=== PATIENT | female | born 1990 | race Caucasian/White ===

== ENCOUNTER 2023-05-08 17:11 | Emergency (ER) | payer MEDICAID, SELFPAY ==
[2023-05-08 17:21] VITALS: BP 114/69; PULSE 56; RESP 18; TEMP 36.3; O2SAT 100; BMI 26.4
--- NOTE | 2023-05-08 17:47 | ED_ITS ---
HPI - General Adult General Chief complaint: Unspecified Complaint, Adult Stated complaint: Trouble Breathing Itching Burning Chest Pains Time Seen by Provider: 05/08/23 17:16 History of Present Illness HPI narrative: This 32-year-old female comes in reporting symptoms of feeling itchy with chest discomfort and shortness of breath starting last evening. She does not have a cough and has not had any fevers. She states that she feels some chest discomfort at times and it is reproducible with certain movements or taking a deep breath. She states that she feels short of breath but clarifies this to mean that it is little more difficult to breathe through her nose. She does arrive with normal vital signs. She does not have any rash or skin changes. She is otherwise in good health. Related Data Home Medications Medication Instructions Recorded Confirmed buprenorphine 4 mg-naloxone 1 mg 5 mg sublingual BID 05/08/23 05/08/23 sublingual film (Suboxone) quetiapine 100 mg tablet PO 05/08/23 Previous Rx's Medication Instructions Recorded methylprednisolone 4 mg tablets in See Rx Instructions PO .COMPLEX 05/08/23 a dose pack (Medrol (Jeramy)) #21 ea Allergies Allergy/AdvReac Type Severity Reaction Status Date / Time horseradish AdvReac Verified 05/08/23 17:21 Review of Systems Status of ROS: Reports: 10 or more systems reviewed and unremarkable except as noted in History and below Narrative: Constitutional: No fevers, no weight gain or loss. Eyes: No discharge. No vision changes. HENT: She has nasal congestion. no sore throat, no ear pain. Cardiovascular: No palpitations. Respiratory: No shortness of breath, no wheezes, no cough. Gastrointestinal: No abdominal pain, no vomiting, no diarrhea. Genitourinary: No dysuria, no hematuria. Musculoskeletal: Normal range of motion. Skin: No rashes. She feels itchy. Neurological: No dizziness, weakness, sensory change, speech change. Endo/Heme/Allergies: No bruising or bleeding. No polydipsia. Pysch: no suicidality, no anxiety, no insomnia. All other systems reviewed and are negative. Exam Narrative: Exam Narrative: Constitutional: Well-developed, well-nourished, no acute distress. HEENT: Normocephalic, atraumatic. Oropharynx appears normal. Neck: Normal range of motion. Nontender. Supple. Heart: Regular. No murmurs. Normal rate. Intact distal pulses. Lungs: Clear to auscultation. No wheezes, rhonchi, or rales. Some chest discomfort in the lower anterior chest when taking a deep breath and with certain movements. Abdomen: Normal bowel sounds. Nontender. No rebound tenderness. Genitalia: Deferred. Back: No midline tenderness. Normal range of motion. Extremities: Normal range of motion. No injury. Skin: Intact. No rash. Warm. No erythema or pallor. Neurologic: No altered sensation. No weakness. Alert and oriented. Psychiatric: No suicidality. No anxiety or depression. No insomnia. Nursing notes and vitals signs are reviewed. Const: Vital Signs, click to edit/add: Vital Signs - 24 hr 05/08/23 17:21 Temperature 97.3 F L Pulse Rate [Right Pulse Oximeter] 56 L Respiratory Rate 18 Blood Pressure [Le ft Upper Arm] 114/69 Pulse Oximetry 100 Oxygen Delivery Me thod Room Air Course Vital Signs Vital signs: Initial Vital Signs Temperature 97.3 F L 05/08/23 17:21 Temperature Source Temporal Artery Scan 05/08/23 17:21 Pulse Rate 56 L 05/08/23 17:21 Respiratory Rate 18 05/08/23 17:21 Blood Pressure 114/69 05/08/23 17:21 Blood Pressure Mean 84 05/08/23 17:21 Blood Pressure Position Sitting 05/08/23 17:21 Pulse Oximetry 100 05/08/23 17:21 Oxygen Delivery Method Room Air 05/08/23 17:21 Vital Signs Temperature 97.3 F L 05/08/23 17:21 Pulse Rate 56 L 05/08/23 17:21 Respiratory Rate 18 05/08/23 17:21 Blood Pressure 114/69 05/08/23 17:21 Pulse Oximetry 100 05/08/23 17:21 Oxygen Delivery Method Room Air 05/08/23 17:21 Temperature 97.3 F L 05/08/23 17:21 Pulse Rate 56 L 05/08/23 17:21 Respiratory Rate 18 05/08/23 17:21 Blood Pressure 114/69 05/08/23 17:21 Pulse Oximetry 100 05/08/23 17:21 Oxygen Delivery Method Room Air 05/08/23 17:21 Medical Decision Making MDM Narrative Medical decision making narrative: This patient comes in with several symptoms that began last evening. She states that she feels itchy all over and has some congestion in her nasal area. She has also had some chest discomfort on and off. I did discuss lab and imaging options with the patient and she did request an EKG along with a bedside ultrasound. EKG shows normal sinus rhythm. I did do a quick cursory look at lungs and heart and abdomen with bedside ultrasound but did not store any images or charge for this screening look. Her symptoms are likely musculoskeletal with regard to her chest discomfort. She may have some allergic reaction also but is not showing any sign of rash. The patient did receive an oral dose of dexamethasone and a prescription for Medrol Dosepak. ECG Data Attestation: I personally reviewed and interpreted this ECG as follows: Interpretation: Normal sinus rhythm. Rate is 57 beats per minute. There are no ST or T-wave abnormalities. Discharge Plan Discharge Clinical Impression: Chest wall pain, Pruritus Patient Disposition: Home, Self-Care Condition: Stable Additional Instructions: Take medication as prescribed. Follow up with MD or return if worsening. Prescriptions: New methylprednisolone [Medrol (Jeramy)] 4 mg tablets,dose pack See Rx Instructions .ROUTE .COMPLEX Qty: 21 0RF Rx Instructions: orally per package directions No Action quetiapine 100 mg tablet PO buprenorphine-naloxone [Suboxone] 4-1 mg film 5 mg sublingual BID Follow Up/Referrals: Provider,Not a Local [Primary Care Provider] - Stand Alone Forms: [employer] [facility] Info Instructions
[2023-05-08] MEDS: dexAMETHasone 10 MG/ML inj PO (18:33)
--- NOTE | 2023-05-09 14:52 | ED.NURSE ---
had called and wanted the rx for the steroid. [facility] did not receive the rx. medrol dose ezio called in to [facility] as ordered,
== END 2023-05-08 18:37 | disposition home or self-care (01) ==
PROVIDERS: Emergency Provider Emergency Medicine Emergency Medical Services
DX: R07.89 Other chest pain (principal); L29.9 Pruritus, unspecified
CPT/HCPCS: 93005; 99284; J1100

== ENCOUNTER 2023-06-15 15:23 | Outpatient (CLI) | payer SELFPAY | END 2023-06-15 15:24 | disposition home or self-care (01) | PROVIDERS: Visit Provider Student in an Organized Health Care Education/Training Program | DX: S69.92XA Unspecified injury of left wrist, hand and finger(s), initial encounter (principal); V49.40XA Driver injured in collision with unspecified motor vehicles in traffic accident, initial encounter; Y92.410 Unspecified street and highway as the place of occurrence of the external cause | CPT/HCPCS: A0425; A0429 ==

== ENCOUNTER 2023-06-15 15:53 | Emergency (ER) | payer SELFPAY ==
[2023-06-15] VITALS (12 sets, daily range): BP systolic 104–115; BP diastolic 58–76; PULSE 84–104; RESP 14–16; TEMP 36.1; O2SAT 96–98; BMI 27.4
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
[2023-06-15] MEDS: ACETAMINOPHEN 500 MG TABLET 1000 MG PO (16:32)
[2023-06-15 16:45] LABS: Basophils Absolute Auto 0.03 K/uL (0.00-0.30); Basophils Percent Auto 0.7 % (0.0-3.0); Eosinophils Absolute Auto 0.24 K/uL (0.00-0.50); Eosinophils Percent Auto 5.3 % (0.0-7.0); Hemoglobin* 11.3 gm/dL (12.0-16.0); Immature Granulocytes Abs Auto 0.01 K/uL (0.00-0.30); Immature Granulocytes Pct Auto 0.2 %; Lymphocytes Absolute Auto 1.97 K/uL (0.90-2.90); Lymphocytes Percent Auto 43.5 % (20-44); Mean Corpuscular HGB Conc 33 gm/dL (32-36); Mean Corpuscular Hemoglobin 29 pg (26-34); Mean Corpuscular Volume 88 fL (80-100); Monocytes Percent Auto 9.9 % (0.0-11.0); Neutrophils Percent Auto 40.4 % (42.0-72.0); Platelet Count* 195 K/uL (140-440); RDW Coefficient of Variation % 12.2 % (11.5-15.5); Red Blood Count 3.86 m/uL (4.00-5.20); White Blood Count* 4.53 K/uL (4.50-11.00)
[2023-06-15 16:46] LABS: Slide Review Reflex No
[2023-06-15 17:16] LABS: Chloride* 102 mmol/L (96-114); Potassium* 3.5 mmol/L (3.6-5.1); Sodium* 137 mmol/L (135-149)
[2023-06-15 17:18] LABS: Aspartate Amino Transferase* 53 U/L (12-35); Bilirubin Total* 0.5 mg/dL (0.1-1.5); Blood Urea Nitrogen* 12 mg/dL (5-24); Carbon Dioxide* 26 mmol/L (20-32); Creatinine* 0.6 mg/dL (0.5-1.5); Est. Creatinine Clearance* 127.18; Estimated Glomerular Filt Rate 123 ml/min; Total Protein* 6.7 g/dL (6.0-8.3)
[2023-06-15 17:19] LABS: Alanine Aminotransferase* 68 U/L (4-35); Alkaline Phosphatase* 70 U/L (40-150); Calcium* 9.1 mg/dL (8.4-10.6); Glucose* 96 mg/dL (60-115)
[2023-06-15 17:55] LABS: HCG Quantitative* < 2.39 mIU/mL
[2023-06-15] MEDS: OXYCODONE 5 MG TABLET PO (18:23)
[2023-06-15] MEDS: LIDOCAINE 5% PATCH 1 PATCH TRANSDERMA (18:23)
[2023-06-15 18:24] LABS: Amphetamine Screen Urine Negative (Negative); Barbiturate Screen Urine Negative (Negative); Cannabinoid Screen Urine Negative (Negative); Cocaine Screen Urine Negative (Negative); Methadone Screen Urine Negative (Negative); Methamphetamines Screen Urine Negative (Negative); Opiate Screen Urine Negative (Negative); Oxycodone Screen Urine Negative (Negative); Phencyclidine Screen Urine Negative (Negative)
[2023-06-15 18:31] LABS: Benzodiazepines Screen Urine POSITIVE (Negative); Tricyclic Antidepressant Urine POSITIVE (Negative)
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
== END 2023-06-15 19:15 | disposition home or self-care (01) ==
PROVIDERS: Emergency Provider Student in an Organized Health Care Education/Training Program
DX: R07.89 Other chest pain (principal); V43.02XA Car driver injured in collision with other type car in nontraffic accident, initial encounter
CPT/HCPCS: 36415; 70450; 71250; 72125; 73130; 80053; 80306; 84702; 85025; 93005; 99282; 99283; 99291; A9270; G0390